=== PATIENT | female | born 1945 | race Caucasian/White ===

== ENCOUNTER 2022-01-31 08:31 | Day surgery (SDC) | payer MEDICARE, BC ==
[2022-01-27 15:01] VITALS: BMI 25.7
[2022-01-31] MEDS ORDERED: Lidocaine 1% MPF 2 ML VIAL ONE (08:45)
[2022-01-31] MEDS ORDERED: PROPOFOL 20 ML ONE ×3 (09:40→10:49)
[2022-01-31] MEDS ORDERED: PHENYLEPHRINE-NS 100 MCG/ML 10 ML SYRINGE ONE (10:23)
== END 2022-01-31 10:25 | disposition home or self-care (01) ==
LOC: CSHSDC 08:31
PROVIDERS: ATTEND Internal Medicine Gastroenterology
PROC: 0D758ZZ Dilation of Esophagus, Via Natural or Artificial Opening Endoscopic (ICD-10-PCS; principal; 2022-01-31)
DX: K22.2 Esophageal obstruction (principal); I10 Essential (primary) hypertension; E78.5 Hyperlipidemia, unspecified; F41.9 Anxiety disorder, unspecified; F32.A Depression, unspecified
CPT/HCPCS: J2704

== ENCOUNTER 2022-11-05 07:41 | Day surgery (SDC) | payer MEDICARE, BC ==
[2022-11-05 08:00] VITALS: BMI 25.2
[2022-11-05] MEDS ORDERED: PROPOFOL 20 ML ONE ×2 (09:06→09:27)
[2022-11-05] MEDS ORDERED: Lidocaine 1% PF 5 ML VIAL ONE (09:06)
[2022-11-05] MEDS ORDERED: Fentanyl 100 MCG/2 ML VIAL ONE (09:09)
== END 2022-11-05 10:14 | disposition home or self-care (01) ==
LOC: CSHSDC 07:41
PROVIDERS: ATTEND Internal Medicine Gastroenterology
PROC: 0D748ZZ Dilation of Esophagogastric Junction, Via Natural or Artificial Opening Endoscopic (ICD-10-PCS; principal; 2022-11-05)
DX: K22.2 Esophageal obstruction (principal); K44.9 Diaphragmatic hernia without obstruction or gangrene; K21.00 Gastro-esophageal reflux disease with esophagitis, without bleeding; I10 Essential (primary) hypertension; Z79.899 Other long term (current) drug therapy
CPT/HCPCS: J2704; J3010

== ENCOUNTER 2022-11-13 07:12 | Day surgery (SDC) | payer MEDICARE, BC ==
[2022-11-12 09:28] VITALS: BMI 25.2
[2022-11-13] MEDS ORDERED: PROPOFOL 40 ML ONE (08:37)
[2022-11-13] MEDS ORDERED: Ketamine 50 MG/ML (10ML VIAL) ONE (08:39)
[2022-11-13] MEDS ORDERED: Lidocaine 1% PF 5 ML VIAL ONE (08:40)
== END 2022-11-13 09:53 | disposition home or self-care (01) ==
LOC: CSHSDC 07:12
PROVIDERS: ATTEND Internal Medicine Gastroenterology
PROC: 0D758ZZ Dilation of Esophagus, Via Natural or Artificial Opening Endoscopic (ICD-10-PCS; principal; 2022-11-13)
DX: K22.2 Esophageal obstruction (principal); K21.9 Gastro-esophageal reflux disease without esophagitis; K44.9 Diaphragmatic hernia without obstruction or gangrene; K31.7 Polyp of stomach and duodenum; I10 Essential (primary) hypertension; Z79.899 Other long term (current) drug therapy
CPT/HCPCS: J2704

== ENCOUNTER 2023-11-19 07:52 | Day surgery (SDC) | payer MEDICARE ==
[2023-11-17 11:19] VITALS: BMI 24.9
[2023-11-19] MEDS ORDERED: fentaNYL 50 mcg/mL 1 mL Vial ONE (09:38)
[2023-11-19] MEDS ORDERED: PROPOFOL 20 ML ONE (09:47)
== END 2023-11-19 10:38 | disposition home or self-care (01) ==
LOC: CSHSDC 07:52
PROVIDERS: ATTEND Internal Medicine Gastroenterology
PROC: 0DB68ZX Excision of Stomach, Via Natural or Artificial Opening Endoscopic, Diagnostic (ICD-10-PCS; principal; 2023-11-19)
PROC: 0D758ZZ Dilation of Esophagus, Via Natural or Artificial Opening Endoscopic (ICD-10-PCS; 2023-11-19)
DX: K22.2 Esophageal obstruction (principal); K21.00 Gastro-esophageal reflux disease with esophagitis, without bleeding; K22.89 Other specified disease of esophagus; K44.9 Diaphragmatic hernia without obstruction or gangrene; K31.7 Polyp of stomach and duodenum; K31.89 Other diseases of stomach and duodenum; R13.10 Dysphagia, unspecified; I10 Essential (primary) hypertension; E78.5 Hyperlipidemia, unspecified
CPT/HCPCS: 43239; 43248; J3010; 88305; J2704